=== PATIENT | female | born 1950 | race Caucasian/White ===

== ENCOUNTER 2024-04-21 10:47 | Day surgery (SDC) | payer MEDICARE ==
[2024-04-21] VITALS (9 sets, daily range): BP systolic 103–138; BP diastolic 54–82; PULSE 58–69; TEMP 97.7–97.9
[~2024-04-21] VITALS: Ht 160 cm; Wt 77.0 kg
[~2024-04-21 10:47] MED LIST: Celecoxib 400 MG PREOP X1 PO SCH; Famotidine 20 MG TAB PO SCH; LR 1,000 ML IV SCH; NORCO 325 MG-7.1 TAB PO; Pregabalin 150 MG CAP PREOP X1 PO SCH
[2024-04-21] MEDS ORDERED: fentaNYL 50 MCG/ML 2 ML VIAL ONE (11:32)
[2024-04-21] MEDS ORDERED: Midazolam 2 MG/2 ML VIAL ONE (11:32)
[2024-04-21] MEDS ORDERED: Ondansetron 4 MG/2 ML VIAL ONE (11:32)
[2024-04-21] MEDS ORDERED: Lidocaine PF 2% (20 MG/ML) 5 ML VIAL ONE (11:32)
[2024-04-21] MEDS ORDERED: Morphine 2 MG/1 ML VIAL [PACU/SDC ONLY] IV PRN (11:45)
[2024-04-21] MEDS ORDERED: fentaNYL 50 MCG/ML 1 ML SYRINGE/VIAL [PACU/SDC ONLY] IV PRN (11:45)
[2024-04-21] MEDS ORDERED: HYDROmorphone 1 MG/1 ML SYRINGE [PACU/SDC ONLY] IV PRN (11:45)
[2024-04-21] MEDS ORDERED: Ondansetron 4 MG/2 ML VIAL IV PRN (11:45)
[2024-04-21] MEDS ORDERED: ATIVAN 0.50.5 MG/TAB PO (11:50)
[2024-04-21] MEDS ORDERED: Tranexamic Acid 1,000 MG/10 ML VIAL ONE (14:23)
[2024-04-21] MEDS ORDERED: Topical Skin Adhesive 1 EACH (1 ML) TOP ONE (14:34)
[2024-04-21] MEDS ORDERED: Morphine 4 MG/ML VIAL IV PRN (14:45)
[2024-04-21] MEDS ORDERED: Promethazine 50 MG/ML 1 ML VIAL IM PRN (14:45)
[2024-04-21] MEDS ORDERED: Naloxone 0.4 MG/ML VIAL IV PRN (14:45)
[2024-04-21] MEDS ORDERED: Promethazine 25 MG TAB PO PRN (14:45)
[2024-04-21] MEDS ORDERED: traMADol 50 MG TAB PO PRN (15:00)
[2024-04-21] MEDS ORDERED: oxyCODONE 5 MG TAB PO PRN (15:00)
--- NOTE | 2024-04-21 15:20 | NUR ---
PATIENT AWAKE AND ALERT, SITTING UP IN BED. PATIENT ARRIVED AWAKE AND ALERT, IN STABLE CONDITION. CALL LIGHT WITHIN REACH. EVIN WRAP TO L KNEE CDI. CRYO CUFF PLACED, POST OP VITALS INITATED.
[2024-04-21] MEDS ORDERED: LORazepam 0.5 MG TAB PO PRN (15:30)
[2024-04-21] MEDS ORDERED: NORVASC 10MG10 MG PO (15:35)
[2024-04-21] MEDS ORDERED: Acetaminophen 500 MG TAB PO SCH (15:43)
[2024-04-21] MEDS ORDERED: ceFAZolin 1 G in Water For Injection,Sterile 10 ML IV SCH (18:43)
--- NOTE | 2024-04-21 18:50 | NUR ---
PATIENT VOICES NO PAIN AT THIS TIME. STATES HER FEELING IS RETURNING TO HER LEFT LOWER EXTREMITY. PATIENT ABLE TO WIGGLE HER TOES. [facility]. CRYO CUFF IN PLACE AND ON. PATIENT DENIES ANY NEEDS OR COMPLAINTS AT THIS TIME. THIS RN CALLED FABRICATION WELDER TO BRING TECHNOL BRACE FOR PATIENT OVERNIGTH USE.
--- NOTE | 2024-04-21 20:30 | NUR ---
PT A&O X4 LAYING IN BED. VSS. PT REPORTING PAIN 05/06, GAVE PRN OXYCODONE PER DEC. DRSG TO LEFT KNEE CDI & CRYOCUFF IN PLACE. PT AMBULATED TO RESTROOM WITH X1 ASSIST. INT TO LEFT AC PATENT. BLE SCD ON & STORM TO RLE. PT DENYING FURTHER NEEDS & CALL LIGHTS IN REACH
[2024-04-22 00:26] VITALS: BP_SYST 109
[2024-04-22 05:06] VITALS: BP 108/64; PULSE 61; TEMP 97.6
--- NOTE | 2024-04-22 06:04 | NUR ---
PT RESTING IN BED. STATES PAIN IS 5/10 THIS MORNING TO LEFT KNEE, GAVE PRN TRAMADOL PER DEC. CRYOCUFF IN PLACE. PT DENYING OTHER NEEDS. CALL LIGHT IN REACH
[2024-04-22 06:07] LABS: HEMOGLOBIN 11.6 g/dl (12.5-16.0)
[2024-04-22 06:14] LABS: HEMATOCRIT 35.9 % (37.0-47.0)
--- NOTE | 2024-04-22 07:21 | NUR ---
Pt resting in bed. Denies needs at this itme. Call light in reach.
--- NOTE | 2024-04-22 07:38 | NUR ---
Pt laying in bed. A&Ox4. VSS. S1S2. Clear lungs on RA. ABD is round, soft, non-tender with audible bowel sounds. Palpable pulses in all extremities. 5/5 strength in BUE and RLL, 3/5 strength in LLL. EVIN dressing on L Knee with Cryopack on. Pt denies n/v, headache, dizziness. Pt reports 6/10 pain in R knee. Call light in reach.
[2024-04-22 07:59] VITALS: BP 118/77; PULSE 60; TEMP 97.4
[2024-04-22] MEDS ORDERED: ROXICODONE 55 MG/TAB PO (08:01)
[2024-04-22] MEDS ORDERED: CELEBREX 200MG200 MG PO (08:01)
[2024-04-22] MEDS ORDERED: ASPI325T6 PO (08:01)
[2024-04-22] MEDS ORDERED: TYLENOL 500MG500 MG PO (08:01)
[2024-04-22] MEDS ORDERED: ULTRAM 50MG TAB50 MG PO (08:01)
[2024-04-22] MEDS ORDERED: Celecoxib 200 MG CAP PO SCH (09:00)
[2024-04-22 09:20] VITALS: BP_SYST 118
--- NOTE | 2024-04-22 10:35 | NUR ---
Pt received D/C orders. Educqated Pt on D/C instructions and information. D/C'ed IV from L AC. Tip intact and pressure bandage applied. Answered Pt questions. Bandage changed to Aquacell. Incision on L Knee is [place] and clean. Aquacell applied. No further needs. STORM Hose on bilaterally. Pt will get dressed, offerred assistance, Pt declined. Pt calling for ride home.
--- NOTE | 2024-04-22 10:49 | NUR ---
Initial visit; Patient thanked Household Appliance Repairer for looking in on her and listening to her "story" about her surgeries and finally having a DrDiego who will help her. Patient thanked Household Appliance Repairer for God's blessings and prayer.
--- NOTE | 2024-04-22 11:36 | NUR ---
older worker specialist met with patient to discuss discharge planning. Patient lives in [place] with her , Cristian, P# [phone]. PCP is Dr. Burnett in [place], Pharmacy is [facility]. Insurance is [employer]. No DPOA-HC, not interested in completing one at this time. DME is cane and walker when needed. Patient reports to be independent with ADLS and is able to transport herself to appointments. Patient would like to return home at time of discharge. Discharge plan: Home
[2024-04-22 11:50] VITALS: BP 113/64; PULSE 69; TEMP 97.6
--- NOTE | 2024-04-22 12:00 | NUR ---
Pt transferred to and transported to vehicle by YAZMIN Erazo. No further needs.
== END 2024-04-22 12:00 | disposition home or self-care (01) ==
LOC: SDCO 10:47 → SURG 15:20 → SDCO 16:30 → SURG 04-22 12:00
PROVIDERS: Physician Assistant
DX: M17.12 Unilateral primary osteoarthritis, left knee (principal); I10 Essential (primary) hypertension; Z87.891 Personal history of nicotine dependence
CPT/HCPCS: OP; A6197; A9284; C1713; C1776; J0690; J2250; J2405; J2704; J3010; J7120; L1830